=== PATIENT | female | born 1980 | race Caucasian/White ===

== ENCOUNTER 2019-11-19 17:13 | Emergency (ER) | payer BC, OTHER ==
[2019-11-19] MEDS ORDERED: methylPREDNISolone Sodium Succinate 125 MG/2 ML SDV IVPUSH ONE (17:47)
[2019-11-19] MEDS ORDERED: diphenhydrAMINE 50 MG/ML SDV IVPUSH ONE (17:47)
[2019-11-19] MEDS ORDERED: Sodium Chloride 0.9% 1,000 ML IV ONE (17:47)
[2019-11-19] MEDS ORDERED: Sodium Chloride 0.9% 10 ML Syringe FLUSH PRN (17:47)
[2019-11-19] MEDS ORDERED: Famotidine 20 MG/2 ML SDV IVPUSH ONE (17:47)
[2019-11-19] MEDS ORDERED: Ondansetron 4 MG/2 ML SDV IVPUSH ONE (18:11)
--- NOTE | 2019-11-19 18:13 | EDM.PDOC ---
ED HPI GENERAL MEDICAL PROBLEM - General Chief Complaint: Allergic Reaction Stated Complaint: ALLERGIC RX TO MEDS -RASH AND FEVER Time Seen by Provider: 11/19/19 17:46 Source of Information: Reports: Patient, RN Notes Reviewed History Limitations: Reports: No Limitations - History of Present Illness INITIAL COMMENTS - FREE TEXT/NARRATIVE: Patient is a 39-year-old female who presents to the ED by the direction of her computer systems security analyst for the evaluation of a rash and a fever. Patient sees Dr. Colón in [place], and was started on sulfasalazine at the beginning of October. She states that she started the medication on October 27, and had her labs drawn on the , and everything was within normal limits. She states that she called her provider today because she had developed a fever and rash, and she told her to go get her labs drawn again, and her liver enzymes were all elevated. This worried Dr. Colón and so she sent her to the ER for further evaluation. Patient states that she has an allover body rash, that is red, raised, very itchy. She states she is feeling very lethargic, she has had a fever as well at home, her temperature is 99.6 F, O2 sats are 99% on room air. She states she is feeling nauseous. She is not had any known sick contacts, she was not sure what was going on so she did get tested for COVID 2 days ago and her results are pending at this time. Generalized Pain Score (Numeric/FACES): 2 - Related Data Allergies Allergy/AdvReac Type Severity Reaction Status Date / Time Sulfa (Sulfonamide Allergy Rash Verified 11/19/19 17:53 Antibiotics) Home Meds: Home Meds Thyroid [Gardiner Thyroid] 60 mg PO DAILY 11/19/19 [History] amLODIPine [Norvasc] 5 mg PO DAILY 11/19/19 [History] Past Medical History - Infectious Disease History Infectious Disease History: Reports: Chicken Pox, Shingles Social & Family History - Tobacco Use Smoking Status *Q: Never Smoker - Caffeine Use Caffeine Use: Reports: Coffee, Energy Drinks, Soda, Tea - Recreational Drug Use Recreational Drug Use: No ED ROS ALLERGIC REACTION - Review of Systems Review Of Systems: Comprehensive ROS is negative, except as noted in HPI. ED EXAM GENERAL NO PERIP PULSE - Physical Exam Exam: See Below Exam Limited By: No Limitations General Appearance: Alert, WD/WN, No Apparent Distress Respiratory/Chest: No Respiratory Distress, Lungs Clear, Normal Breath Sounds, No Accessory Muscle Use, Chest Non-Tender Cardiovascular: Normal Peripheral Pulses, Regular Rate, Rhythm, No Edema, No Murmur GI/Abdominal: Normal Bowel Sounds, Soft, Non-Tender, No Distention, No Mass Extremities: Normal Inspection, Normal Capillary Refill Neurological: Alert, Oriented, Normal Cognition, No Motor/Sensory Deficits Psychiatric: Normal Affect, Normal Mood Skin Exam: Warm, Dry, Intact, Normal Color, Rash (Erythematous raised, itchy rash over the entire body) Course - Vital Signs Last Recorded V/S: Last Vital Signs Temp 99.6 F 11/19/19 17:58 Pulse 102 H 11/19/19 17:58 Resp 20 11/19/19 17:58 BP 121/99 H 11/19/19 17:58 Pulse Ox 99 11/19/19 17:58 - Orders/Labs/Meds Orders: Active Orders 24 hr Category Date Time Status SMEARS TO PATH (SLIDES ONLY) [REF] Stat Lab 11/19/19 18:20 Received Peripheral IV Insertion Adult [OM.PC] Stat Oth 11/19/19 17:47 Ordered Labs: Laboratory Tests 11/19/19 11/19/19 11/19/19 Range/Units 18:20 18:20 20:20 WBC 9.48 (3.98-10.04) K/mm3 RBC 4.56 (3.98-5.22) M/mm3 Hgb 12.6 (11.2-15.7) gm/dl Hct 39.4 (34.1-44.9) % MCV 86.4 (79.4-94.8) fl MCH 27.6 (25.6-32.2) pg MCHC 32.0 L (32.2-35.5) g/dl RDW Std Deviation 47.8 H (36.4-46.3) fL Plt Count 204 (182-369) K/mm3 MPV 8.5 L (9.4-12.3) fl Neut % (Auto) 29.9 L (34.0-71.1) % Lymph % (Auto) 39.8 (19.3-51.7) % [place] % (Auto) 20.1 H (4.7-12.5) % Eos % (Auto) 2.6 (0.7-5.8) Baso % (Auto) 7.4 H (0.1-1.2) % Neut # (Auto) 2.83 (1.56-6.13) K/mm3 Lymph # (Auto) 3.77 H (1.18-3.74) K/mm3 [place] # (Auto) 1.91 H (0.24-0.36) K/mm3 Eos # (Auto) 0.25 (0.04-0.36) K/mm3 Baso # (Auto) 0.70 H (0.01-0.08) K/mm3 Manual Slide Review Abnormal smear Sodium 137 (136-145) mEq/L Potassium 3.4 L (3.5-5.1) mEq/L Chloride 101 (98-107) mEq/L Carbon Dioxide 26 (21-32) mEq/L Anion Gap 13.4 (5-15) BUN 10 (7-18) mg/dL Creatinine 0.9 (0.55-1.02) mg/dL Est Cr Clr Drug Dosing 63.95 mL/min Estimated GFR (MDRD) > 60 (>60) mL/min BUN/Creatinine Ratio 11.1 L (14-18) Glucose 81 (74-106) mg/dL Calcium 8.1 L (8.5-10.1) mg/dL Total Bilirubin 0.5 (0.2-1.0) mg/dL AST 151 H (15-37) U/L ALT 212 H (14-59) U/L Alkaline Phosphatase 215 H (46-116) U/L Total Protein 7.0 (6.4-8.2) g/dl Albumin 3.0 L (3.4-5.0) g/dl Globulin 4.0 gm/dL Albumin/Globulin Ratio 0.8 L (1-2) SARS-CoV-2 RNA (ERUM) Negative (NEGATIVE) Meds: Medications Discontinued Medications Generic Name Dose Route Start Last Admin Trade Name Freq PRN Reason Stop Dose Admin Diphenhydramine HCl 50 mg 11/19/19 17:47 11/19/19 18:03 Benadryl IVPUSH 11/19/19 17:48 50 mg ONETIME ONE Administration Famotidine 20 mg 11/19/19 17:47 11/19/19 18:00 Pepcid IVPUSH 11/19/19 17:48 20 mg ONETIME ONE Administration Sodium Chloride 1,000 mls @ 500 mls/hr 11/19/19 17:47 11/19/19 18:03 Normal Saline IV 11/19/19 19:46 500 mls/hr ONETIME ONE Administration Methylprednisolone Sodium Succinate 125 mg 11/19/19 17:47 11/19/19 18:04 Solu-Medrol IVPUSH 11/19/19 17:48 125 mg ONETIME ONE Administration Ondansetron HCl 4 mg 11/19/19 18:11 11/19/19 18:32 Zofran IVPUSH 11/19/19 18:12 4 mg ONETIME ONE Administration Sodium Chloride 10 ml 11/19/19 17:47 11/19/19 18:03 Saline Flush FLUSH 10 ml ASDIRECTED PRN Administration Keep Vein Open - Re-Assessments/Exams Free Text/Narrative Re-Assessment/Exam: 11/19/19 18:17 Patient presents to the ED for the evaluation of her allergic reaction. She will be given 125 mg Solu-Medrol, IV Benadryl, IV Pepcid, and some Zofran for her nausea along with some fluids, and have basic labs taken at this time. 11/19/19 19:24 Patient was feeling better after the medications provided. Labs were reviewed with her, again she does have some elevated liver enzymes, but the patient is not too keen about being transferred to [place] or possibly [place] for management. I will provide the patient with an outpatient course of steroids, and some Zofran for her nausea, I did give her strict return precautions to come back to the ER, she did agree to comply at this time. Patient also states she was taking 2 tablets Tylenol every 4 hours for her fever. This may also be why her liver enzymes are elevated as well. 11/19/19 20:34 The patient's computer systems security analyst, Dr. 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 I have called Juan M in [place] for this, we did do a coronavirus test, this is pending at this time. Dr. Umaña did tentatively accept at this time. 11/19/19 21:25 The patient's coronavirus test was negative. She will transfer to [facility] via private vehicle. Departure - Departure Time of Disposition: 19:25 Disposition: DC/Tfer to Acute Hospital 02 Condition: Good Clinical Impression: Elevated liver enzymes, DRESS syndrome Allergic reaction caused by a drug Qualifiers: Encounter type: initial encounter Qualified Code(s): T78.40XA - Allergy, unspecified, initial encounter - Discharge Information *PRESCRIPTION DRUG MONITORING PROGRAM REVIEWED*: No *COPY OF PRESCRIPTION DRUG MONITORING REPORT IN PATIENT BONG: No Instructions: Drug Rash Referrals: Dorota Colón MD [Primary Care Provider] - Forms: ED Department Discharge Additional Instructions: You were evaluated in the ER today for your allergic reaction to sulfasalazine. Please cease use of this medication and do not continue to take this medication, and try to avoid all sulfa-containing drugs in the future. You were given IV fluids, IV Benadryl, IV Pepcid, and IV steroids for management of your allergic reaction. This seemed to relieve most of your symptoms. Your liver enzymes were elevated at today's visit. I am hopeful that these will return to normal when most of the medications passed through your system. Please monitor your symptoms and watch out for worsening fever, rash that is spreading rather than getting better, upper abdomen tenderness specifically to the right upper abdomen, or intractable nausea/vomiting. As these would be cause for concern to come straight back to the ER for further management and possible hospitalization. Please continue to increase your fluid intake, and take all other medications as prescribed. You were given a prescription for prednisone, a steroid, along with Zofran, for nausea. Please use the Zofran 1 tab dissolvable under your tongue every 8 hours as needed for nausea. Recommend you follow-up with your computer systems security analyst on Saturday morning, so your labs can be repeated to make sure that everything is getting better as expected. Again if things are not getting better in 24 to 48 hours time, or they seem to be worsening in a shorter time period, return to the ER for immediate management. Sepsis Event Note (ED) - Evaluation Sepsis Screening Result: No Definite Risk - Focused Exam Vital Signs: Vital Signs Temp Pulse Resp BP Pulse Ox 11/19/19 17:58 99.6 F 102 H 20 121/99 H 99 - My Orders Last 24 Hours: My Active Orders 11/19/19 17:47 Peripheral IV Insertion Adult [OM.PC] Stat 11/19/19 18:20 SMEARS TO PATH (SLIDES ONLY) [REF] Stat - Assessment/Plan Last 24 Hours: My Active Orders 11/19/19 17:47 Peripheral IV Insertion Adult [OM.PC] Stat 11/19/19 18:20 SMEARS TO PATH (SLIDES ONLY) [REF] Stat
== END 2019-11-19 21:34 ==
LOC: JD.ED 17:13
DX: L27.0 Generalized skin eruption due to drugs and medicaments taken internally (principal); T37.0X5A Adverse effect of sulfonamides, initial encounter; R74.8 Abnormal levels of other serum enzymes; D72.12 Drug rash with eosinophilia and systemic symptoms syndrome; Z88.2 Allergy status to sulfonamides; Z20.828 Contact with and (suspected) exposure to other viral communicable diseases; Z79.899 Other long term (current) drug therapy
CPT/HCPCS: 36415; 80053; 85025; 87635; 96361; 96374; 96375; 99283; J1200; J2405; J2930; J3490; J7030; 99284; U0002

== ENCOUNTER 2019-11-28 17:40 | Emergency (ER) | payer OTHER ==
[2019-11-28] MEDS ORDERED: Sodium Chloride 0.9% 10 ML Syringe FLUSH PRN (19:20)
[2019-11-28] MEDS ORDERED: diphenhydrAMINE 50 MG/ML SDV IVPUSH ONE (19:21)
[2019-11-28] MEDS ORDERED: Prochlorperazine 10 MG/2 ML SDV IVPUSH ONE (19:21)
[2019-11-28] MEDS ORDERED: Ketorolac 30 MG/ML SDV IVPUSH ONE (19:21)
--- NOTE | 2019-11-28 19:50 | EDM.PDOC ---
ED HPI GENERAL MEDICAL PROBLEM - General Chief Complaint: Headache Stated Complaint: HEADACHE Time Seen by Provider: 11/28/19 19:01 Source of Information: Reports: Patient History Limitations: Reports: No Limitations - History of Present Illness INITIAL COMMENTS - FREE TEXT/NARRATIVE: The patient presents with a headache. This started a few days ago. She was recently admitted to [facility] in [place] for suspected Dress syndrome. She has rheumatoid arthritis and she was started on a sulfa drug for this and she developed a rash and had elevated liver enzymes. She was in [place] for almost a week. She is feeling better and she is on steroids still. She does get headaches but not this long. She has no fever, chills, cough, congestion, runny nose, chest pain, shortness of breath, nausea or vomiting. She has no numbness or weakness. She has photophobia. Onset: Gradual Duration: Day(s): Location: Reports: Head Quality: Reports: Ache Severity: Severe Improves with: Reports: None Worsens with: Reports: None Associated Symptoms: Reports: Headaches. Denies: Chest Pain, Cough, Fever/Chills, Nausea/Vomiting, Shortness of Breath Right Parietal Headache Pain Score (Numeric/FACES): 7 - Related Data Allergies Allergy/AdvReac Type Severity Reaction Status Date / Time Sulfa (Sulfonamide Allergy Rash Verified 11/28/19 18:15 Antibiotics) Home Meds: Home Meds Thyroid [Loraine Thyroid] 60 mg PO DAILY 11/19/19 [History] amLODIPine [Norvasc] 5 mg PO DAILY 11/19/19 [History] Fluocinolone/Niacinamide [Fluocinolone LINA 0.01%-Niac 4%] 1 gm TOP BID 11/28/19 [History] Melatonin 5 mg PO BEDTIME PRN 11/28/19 [History] Multivitamin 1 tab PO DAILY 11/28/19 [History] Triamcinolone Acetonide [Triamcinolone Acetonide 0.025%] 1 gm TOP BID 11/28/19 [History] predniSONE [Prednisone] 50 mg PO DAILY 11/28/19 [History] Past Medical History - Infectious Disease History Infectious Disease History: Reports: Chicken Pox, Shingles Social & Family History - Caffeine Use Caffeine Use: Reports: Coffee, Energy Drinks, Soda, Tea ED ROS GENERAL - Review of Systems Review Of Systems: See Below Constitutional: Reports: No Symptoms HEENT: Reports: No Symptoms Respiratory: Reports: No Symptoms Cardiovascular: Reports: No Symptoms Endocrine: Reports: No Symptoms GI/Abdominal: Reports: No Symptoms : Reports: No Symptoms Musculoskeletal: Reports: No Symptoms Skin: Reports: No Symptoms Neurological: Reports: Headache - Physical Exam Exam: See Below Exam Limited By: No Limitations General Appearance: Alert, No Apparent Distress Ears: Normal External Exam Nose: Normal Inspection Head Exam: Atraumatic, Normocephalic Neck: Normal Inspection, Supple, Non-Tender Respiratory/Chest: No Respiratory Distress, Lungs Clear, Normal Breath Sounds Cardiovascular: Regular Rate, Rhythm, No Edema, No Murmur GI/Abdominal: Soft, Non-Tender, No Organomegaly, No Mass Neuro Exam (Abbreviated): Alert, Oriented, No Motor/Sensory Deficits Course - Vital Signs Last Recorded V/S: Last Vital Signs Temp 98.8 F 11/28/19 18:07 Pulse 86 11/28/19 18:07 Resp 18 11/28/19 18:07 BP 148/109 H 11/28/19 18:07 Pulse Ox 98 11/28/19 18:07 - Orders/Labs/Meds Orders: Active Orders 24 hr Category Date Time Status Cardiac Monitoring [RC] . DIRECTED Care 11/28/19 19:20 Active Peripheral IV Care [RC] . DIRECTED Care 11/28/19 19:21 Active Head wo Cont [CT] Stat Exams 11/28/19 19:21 Taken Sodium Chloride 0.9% [Saline Flush] Med 11/28/19 19:20 Active 10 ml FLUSH ASDIRECTED PRN Peripheral IV Insertion Adult [OM.PC] Stat Oth 11/28/19 19:20 Ordered Medication Orders Sodium Chloride (Saline Flush) 10 ml FLUSH ASDIRECTED PRN PRN Reason: Keep Vein Open Last Admin: 11/28/19 20:21 Dose: 10 ml Documented by: AMARIS Labs: Laboratory Tests 11/28/19 11/28/19 Range/Units 20:00 20:00 WBC 18.06 H (3.98-10.04) K/mm3 RBC 5.09 (3.98-5.22) M/mm3 Hgb 14.3 D (11.2-15.7) gm/dl Hct 43.4 (34.1-44.9) % MCV 85.3 (79.4-94.8) fl MCH 28.1 (25.6-32.2) pg MCHC 32.9 (32.2-35.5) g/dl RDW Std Deviation 47.0 H (36.4-46.3) fL Plt Count 542 H D (182-369) K/mm3 MPV 7.7 L (9.4-12.3) fl Neut % (Auto) 72.1 H (34.0-71.1) % Lymph % (Auto) 22.1 (19.3-51.7) % [place] % (Auto) 4.9 (4.7-12.5) % Eos % (Auto) 0 L (0.7-5.8) Baso % (Auto) 0.1 (0.1-1.2) % Neut # (Auto) 13.01 H (1.56-6.13) K/mm3 Lymph # (Auto) 4.00 H (1.18-3.74) K/mm3 [place] # (Auto) 0.89 H (0.24-0.36) K/mm3 Eos # (Auto) 0.00 L (0.04-0.36) K/mm3 Baso # (Auto) 0.02 (0.01-0.08) K/mm3 Manual Slide Review Abnormal smear Sodium 137 (136-145) mEq/L Potassium 3.9 (3.5-5.1) mEq/L Chloride 100 (98-107) mEq/L Carbon Dioxide 28 (21-32) mEq/L Anion Gap 12.9 (5-15) BUN 14 (7-18) mg/dL Creatinine 0.7 (0.55-1.02) mg/dL Est Cr Clr Drug Dosing TNP Estimated GFR (MDRD) > 60 (>60) mL/min BUN/Creatinine Ratio 20.0 H (14-18) Glucose 100 (74-106) mg/dL Calcium 9.4 (8.5-10.1) mg/dL Total Bilirubin 0.8 (0.2-1.0) mg/dL AST 15 (15-37) U/L ALT 139 H (14-59) U/L Alkaline Phosphatase 148 H (46-116) U/L Total Protein 8.0 (6.4-8.2) g/dl Albumin 3.9 (3.4-5.0) g/dl Globulin 4.1 gm/dL Albumin/Globulin Ratio 1.0 (1-2) Meds: Medications Generic Name Dose Route Start Last Admin Trade Name Jesús PRN Reason Stop Dose Admin Sodium Chloride 10 ml 11/28/19 19:20 11/28/19 20:21 Saline Flush FLUSH 10 ml ASDIRECTED PRN Administration Keep Vein Open Discontinued Medications Generic Name Dose Route Start Last Admin Trade Name Jesús PRN Reason Stop Dose Admin Diphenhydramine HCl 50 mg 11/28/19 19:21 11/28/19 20:21 Benadryl IVPUSH 11/28/19 19:22 50 mg ONETIME ONE Administration Ketorolac Tromethamine 30 mg 11/28/19 19:21 11/28/19 20:21 Toradol IVPUSH 11/28/19 19:22 30 mg ONETIME ONE Administration Prochlorperazine Edisylate 10 mg 11/28/19 19:21 11/28/19 20:21 Compazine IVPUSH 11/28/19 19:22 10 mg ONETIME ONE Administration - Re-Assessments/Exams Free Text/Narrative Re-Assessment/Exam: 11/28/19 19:50 I ordered an IV saline lock, toradol 30mg IV, benadryl 50mg IV, compazine 10mg IV, labs and a CT of her head. 11/28/19 21:10 Her WBC is elevated at 18.06. She has been on steroids. Her AST is normal now. Her ALT has improved to 139 along with her alk phos of 148. The CT of her head shows nothing acute. She feels better. I will discharge her home. Departure - Departure Time of Disposition: 21:15 Disposition: Home, Self-Care 01 Condition: Good Clinical Impression: Headache Qualifiers: Headache type: other headache syndrome Qualified Code(s): G44.89 - Other headache syndrome - Discharge Information *PRESCRIPTION DRUG MONITORING PROGRAM REVIEWED*: Not Applicable *COPY OF PRESCRIPTION DRUG MONITORING REPORT IN PATIENT BONG: Not Applicable Referrals: Jay Quintanilla MD [Primary Care Provider] - Forms: ED Department Discharge Additional Instructions: Go home and rest. Please return if you are worse. Sepsis Event Note (ED) - Evaluation Sepsis Screening Result: No Definite Risk - Focused Exam Vital Signs: Vital Signs Temp Pulse Resp BP Pulse Ox 11/28/19 18:07 98.8 F 86 18 148/109 H 98 - My Orders Last 24 Hours: My Active Orders 11/28/19 19:20 Cardiac Monitoring [RC] . DIRECTED Sodium Chloride 0.9% [Saline Flush] 10 ml FLUSH ASDIRECTED PRN Peripheral IV Insertion Adult [OM.PC] Stat 11/28/19 19:21 Peripheral IV Care [RC] . DIRECTED Head wo Cont [CT] Stat - Assessment/Plan Last 24 Hours: My Active Orders 11/28/19 19:20 Cardiac Monitoring [RC] . DIRECTED Sodium Chloride 0.9% [Saline Flush] 10 ml FLUSH ASDIRECTED PRN Peripheral IV Insertion Adult [OM.PC] Stat 11/28/19 19:21 Peripheral IV Care [RC] . DIRECTED Head wo Cont [CT] Stat
--- NOTE | 2019-12-21 12:27 | CT ---
PROCEDURE INFORMATION: Exam: CT Head Without Contrast Exam date and time: 11/28/2019 8:11 PM Age: 39 years old Clinical indication: Condition or disease; Headache; Migraine; Aura effect not specified; Other: Unknown TECHNIQUE: Imaging protocol: Computed tomography of the head without contrast. COMPARISON: No relevant prior studies available. FINDINGS: Brain: Normal. No hemorrhage. Unremarkable white matter. No mass effect. Cerebral ventricles: No ventriculomegaly. Bones/joints: Unremarkable. No acute fracture. Paranasal sinuses: Visualized sinuses are unremarkable. No fluid levels. Mastoid air cells: Visualized mastoid air cells are well aerated. Soft tissues: Unremarkable. IMPRESSION: No acute intracranial abnormality. Thank you for allowing us to participate in the care of your patient. Dictated and Authenticated by: César Johnson MD 12/21/2019 12:26 PM Central Time ([place] & [place]) [facility]ITALWendie
== END 2019-11-28 21:25 | disposition home or self-care (01) ==
LOC: JD.ED 17:40
DX: G44.89 Other headache syndrome (principal); Z88.2 Allergy status to sulfonamides; Z79.899 Other long term (current) drug therapy
CPT/HCPCS: 36415; 70450; 80053; 85025; 96374; 96375; 99284; J0780; J1200; J1885; 99283

== ENCOUNTER 2023-04-15 12:35 | Emergency (ER) | payer OTHER ==
[2023-04-15 14:01] LABS: APPEARANCE,URINE SLT CLOUDY (Clear); BILIRUBIN,URINE NEGATIVE (Negative); COLOR,URINE ORANGE (Yellow); GLUCOSE,URINE TRACE (Negative); KETONES,URINE TRACE (Negative); LEUKOCYTE ESTERASE,URINE 3+ (Negative); NITRITE,URINE POSITIVE (Negative); OCCULT BLOOD,URINE 3+ (Negative); PROTEIN,URINE 3+ (Negative)
[2023-04-15 14:32] LABS: BACTERIA,URINE FEW /hpf (FEW); EPITHELIAL CELLS,URINE 0-5 /hpf (0-5); MUCUS,URINE FEW /hpf (FEW); WBC,URINE 50-75 /hpf (0-5)
[2023-04-15] MEDS: Ondansetron 4 MG/2 ML SDV IVPUSH ONE (15:37)
[2023-04-15] MEDS: HYDROmorphone 0.5 MG/0.5 ML Syringe IVPUSH ONE (15:39)
[2023-04-15] MEDS: Sodium Chloride 0.9% 10 ML Syringe FLUSH PRN (15:41)
[2023-04-15] MEDS: cefTRIAXone 2 GM in Sodium Chloride 0.9% 100 ML IV ONE (15:42)
[2023-04-15] MEDS: Sodium Chloride 0.9% 1,000 ML IV STA (15:42)
[2023-04-15 15:54] LABS: BASOPHILS PERCENT AUTO 0.3 % (0.0-1.0); HEMATOCRIT 41.9 % (37.0-47.0); HEMOGLOBIN 14.3 gm/dl (12.0-16.0); IMMATURE GRAN ABSOLUTE AUTO 0.05 K/mm3 (0.00-0.05); IMMATURE GRAN PERCENT AUTO 0.3 % (0.0-0.4); LYMPHOCYTES ABSOLUTE AUTO 1.7 K/mm3 (1.0-4.8); LYMPHOCYTES PERCENT AUTO 11.6 % (24.0-44.0); MEAN CORPUSCULAR HEMOGLOBIN 30.2 pg (28.0-32.0); MEAN CORPUSCULAR HGB CONC 34.1 g/dl (32.0-36.0); MEAN CORPUSCULAR VOLUME 88.6 fl (83.0-99.0); MEAN PLATELET VOLUME 8.3 fl (9.4-12.3); MONOCYTES ABSOLUTE AUTO 1.2 K/mm3 (0.0-0.8); MONOCYTES PERCENT AUTO 8.3 % (0.0-8.0); NEUTROPHILS ABSOLUTE AUTO 11.8 K/mm3 (1.8-7.7); NEUTROPHILS PERCENT AUTO 79.5 % (41.0-71.0); PLATELET COUNT,PLT 271 K/mm3 (150-400); RED BLOOD CELL COUNT 4.73 M/mm3 (4.10-5.30); WHITE BLOOD CELL COUNT,WBC 14.86 K/mm3 (3.9-11.3)
[2023-04-15 16:07] LABS: A/G RATIO 1.2 (1-2); ALBUMIN 4.4 g/dl (3.4-5.0); ANION GAP 13.7 (5-15); BILIRUBIN TOTAL 0.8 mg/dL (0.2-1.0); BUN/CREATININE RATIO 12.5 (14-18); C-REACTIVE PROTEIN 4.15 mg/dL (<0.30); CALCIUM 9.4 mg/dL (8.5-10.1); CREATININE 0.8 mg/dL (0.55-1.02); EST CRCL DRUG DOSING (CG) 69.83 mL/min; POTASSIUM,K 3.7 mEq/L (3.5-5.1)
[2023-04-15] MEDS: Ketorolac 30 MG/ML SDV IVPUSH ONE (17:25)
== END 2023-04-15 18:30 | disposition home or self-care (01) ==
LOC: JD.ED 12:35
DX: N12 Tubulo-interstitial nephritis, not specified as acute or chronic (principal); Z79.899 Other long term (current) drug therapy; Z88.2 Allergy status to sulfonamides
CPT/HCPCS: 36415; 80053; 81001; 85025; 86140; 87086; 96365; 96375; 99284; J0696; J1170; J1885; J2405; J3490; J7030; 87088; 87186